=== PATIENT | male | born 1985 | race Caucasian/White ===

== ENCOUNTER 2017-03-11 11:41 | Emergency (ER) | payer MEDICAID ==
[~2017-03-11] VITALS: Ht 182.9 cm; Wt 85.9 kg
[2017-03-11 12:26] VITALS: BP 145/78
== END 2017-03-11 12:26 | disposition home or self-care (01) ==
LOC: ED 11:41
DX: Z76.0 Encounter for issue of repeat prescription (principal); F41.9 Anxiety disorder, unspecified; I10 Essential (primary) hypertension; F32.9 Major depressive disorder, single episode, unspecified

== ENCOUNTER 2017-04-14 23:12 | Emergency (ER) | payer MEDICAID ==
[2017-04-15 01:03] VITALS: BP 151/82
== END 2017-04-15 01:03 | disposition home or self-care (01) ==
LOC: ED 23:12
DX: F41.9 Anxiety disorder, unspecified (principal); F32.9 Major depressive disorder, single episode, unspecified; I10 Essential (primary) hypertension